=== PATIENT | male | born 1960 | race Caucasian/White ===

== ENCOUNTER 2025-03-05 11:41 | Emergency (ER) | payer OTHER, SELFPAY ==
[2025-03-05 11:53] VITALS: BP 109/77
[2025-03-05 16:00] VITALS: BP 110/62
--- NOTE | 2025-03-05 16:13 | ED.GENMED ---
History of Present Illness
General
Chief Complaint: Skin Problem
Source: patient
Time Seen by Provider: 03/05/25 15:53
History of Present Illness
History of Present Illness:
64-year-old male presents to the emergency room because he saw his family doctor who was concerned he may have a retained foreign body in his right foot. Patient states that he walked outside with no shoes or socks on to close his garage door.
While walking he felt like he stepped on something sharp. Since then he has been having pain with ambulation. He noted there is redness and a collection of pus in the area where he feels he has the foreign body. Patient's family doctor was unable
to care for this in the office and sent him to the emergency room. Patient denies any previous medical history. He takes medication for prostatic hypertrophy but no other medications.
Phy Exam
Physical Exam
Physical Exam:
General: Awake, Alert, Oriented X3. No acute distress.
Vitals: unremarkable
Head: Atraumatic
Eyes: Pupils equal, EOMI
Throat: Airway intact, no exudates
Neck: Trachea midline
Neuro: Nonfocal
Skin: Warm, dry, no rash
Extremities: pulses equal b/l, no edema. Right foot has an area of redness and purulent collection noted over basically the distal portion of the fifth metatarsal. Tenderness to palpation. There is erythema about the foot as well. There is
streaking on the top of the foot.
Course
Orders/Labs/Results
Orders:
Orders
03/05/25 16:12
Foot, Right 3 View [CR Foot - Right Min 3 Views] Urgent
Comment:
Reason For Exam: possible f.b. right foot
03/05/25 19:07
Amoxicillin 875 mg/Clav 125 mg [Augmentin 875 mg/125 mg] 1 tablet PO NOW STA
Vital Signs
Initial and Last Documented VS:
Initial Vital Signs
Temp Pulse Resp BP Pulse Ox
98.6 F 93 20 109/77 97
03/05/25 11:53 03/05/25 11:53 03/05/25 11:53 03/05/25 11:53 03/05/25 11:53
Last Documented Vital Signs
Temp Pulse Resp BP Pulse Ox
98.6 F 89 20 110/62 97
03/05/25 11:53 03/05/25 16:00 03/05/25 16:00 03/05/25 16:00 03/05/25 16:17
MDM/Problems Addressed
Differential Diagnosis Includes:
Retained foreign body in the foot, soft tissue infection, callus with infection
MDM/Problems Addressed:
Patient presents with sensation of a foreign body in his foot and erythema of the foot suggesting infection. X-ray does not show clear foreign body. There are some debris noted on the great toe which is not the area of concern. The patient has
whitish thickened skin in the area of concern which I thought could represent callus formation or could be subcutaneous collection. This area was numbed with lidocaine and a small incision was made. Small piece of material thought to be a piece of
wood was removed. The tissue was debrided somewhat over the wound. Will start the patient on oral antibiotics. Recommend podiatry follow-up. I did touch base with Dr. Sanders who can see the patient on . I asked the patient to call her
office first thing in the morning to arrange this appointment
*Radiology
Radiology exam reviewed: radiology read reviewed
*Pulse Oximetry
SaO2: 97
Oxygen Mode of Delivery: Room air
Patient hypoxic: no
*Critical Care Note
Total Time (30-74mins, 75-104mins- exclusive of procedures): Not Applicable
ED Attending Note
-
Portions of this chart may have been created with voice recognition software.� Occasional wrong word or��sound alike� substitutions may have occurred due to the inherent limitations of voice recognition software.
Discharge Plan
Departure
Patient Disposition: Home (Routine Discharge)
Date of Disposition: 03/05/25
Time of Disposition: 19:02
Patient with high blood pressure during this ER visit?: No
Condition: Good
Discharge Problem:
Foreign body in foot, Foot infection
Prescriptions:
New
amoxicillin-pot clavulanate 875-125 mg tablet
1 tab PO BID Qty: 14 0RF
No Action
sulfacetamide sodium 1 DROP drops
2 drops OP QID Qty: 1 0RF
Rx Instructions:
2 drops to left eye qid for 5 days
Referrals:
Glendy Winters DPM [Active, Podiatry]
Mundo Marti MD [Family Provider, Family Practice]
Activity Restrictions/Additional Instructions:
Take the Augmentin twice a day for 1 week. I have given you contact information for Dr. Smith who is a business management specialist. Call tomorrow to make an appointment with her. Return to the emergency room if you have fever or feel like you are foot and
leg is getting worse
Interventions
Interventions:
*Risk Screen - Suicide Last Done: 03/05/25 11:53
*General Assessment Last Done: 03/05/25 11:53
*Neglect/Abuse Screening Last Done: 03/05/25 11:53
*ED- Fall Risk Assessment Last Done: 03/05/25 19:52
*ED COVID-19 Vaccine History Last Done: 03/05/25 19:52
*Nursing Disposition Last Done: 03/05/25 19:52
ED-Skin Assessment Last Done: 03/05/25 19:52
Discharge Date and Time
Discharge Date/Time: 03/05/25 19:53
Print Language: HEBREW
[2025-03-05] MEDS: AUGMENTIN 875 MG/125 MG 1 TABLET PO (19:18)
== END 2025-03-05 19:53 | disposition home or self-care (01) ==
LOC: EMR 11:41
PROVIDERS: EMERGENCY PHYSICIAN Emergency Medicine; FAMILY PHYSICIAN Family Medicine
DX: S90.851A Superficial foreign body, right foot, initial encounter (principal); L08.9 Local infection of the skin and subcutaneous tissue, unspecified; W45.8XXA Other foreign body or object entering through skin, initial encounter; Y93.01 Activity, walking, marching and hiking; N40.0 Benign prostatic hyperplasia without lower urinary tract symptoms; Z79.899 Other long term (current) drug therapy; Z88.1 Allergy status to other antibiotic agents
CPT/HCPCS: 10120; 99283; 73630